=== PATIENT | female | born 1995 ===

== ENCOUNTER 2023-08-29 18:40 | Emergency (ER) | payer SELFPAY ==
[2023-08-29] MEDS: Diphtheria,Pertussis(Acell),Tetanus Vaccine 0.5 ML Syringe IM ONE (19:39)
== END 2023-08-29 20:02 | disposition home or self-care (01) ==
LOC: MW.ED 18:40
DX: S91.311A Laceration without foreign body, right foot, initial encounter (principal); E11.9 Type 2 diabetes mellitus without complications; Z86.16 Personal history of COVID-19; Z23 Encounter for immunization; E78.00 Pure hypercholesterolemia, unspecified; Z79.899 Other long term (current) drug therapy; W26.8XXA Contact with other sharp object(s), not elsewhere classified, initial encounter
CPT/HCPCS: 73630-26-RT; 73630-RT; 90471; 90715; 99283-25

== ENCOUNTER 2024-02-25 08:44 | Emergency (ER) | payer BC ==
[2024-02-25] MEDS: Acetaminophen 500 MG Tab PO ONE (09:31)
[2024-02-25] MEDS: Ibuprofen 800 MG Tab PO ONE (09:31)
== END 2024-02-25 09:33 | disposition home or self-care (01) ==
LOC: MW.ED 08:44
DX: B34.9 Viral infection, unspecified (principal); J01.90 Acute sinusitis, unspecified; E78.00 Pure hypercholesterolemia, unspecified; E11.9 Type 2 diabetes mellitus without complications; F17.210 Nicotine dependence, cigarettes, uncomplicated; Z91.048 Other nonmedicinal substance allergy status; Z79.84 Long term (current) use of oral hypoglycemic drugs
CPT/HCPCS: 87428; 99283; A9270